=== PATIENT | female | born 1975 | race Caucasian/White ===

== ENCOUNTER → 2016-06-11 | Outpatient (CLI) | payer BC ==
--- NOTE | 2016-06-11 18:13 | US ---
EXAMINATION TYPE: US pelvic complete DATE OF EXAM: 06/11/2016 5:51 PM COMPARISON: NONE CLINICAL HISTORY: N92.1 menorrhagia. Patient had ablation done and after 1 year irregular bleeding s tarted again TECHNIQUE: TA Date of LMP: unknown EXAM MEASUREMENTS: Uterus: 8.0 x 5.4 x 4.3cm Endometrial Stripe: 0.5cm Right Ovary: 3.2 x 1.9 x 2.6cm Left Ovary: 2.5 x 2.0 x 2.3cm TECHNOLOGIST IMPRESSION: 1. Uterus: Retroverted wnl 2. Endometrium: wnl 3. Right Ovary: wnl 4. Left Ovary: wnl 5. Bilateral Adnexa: wnl 6. Posterior cul-de-sac: wnl IMPRESSION: No endometrial thickening seen. No adnexal mass or free fluid.
== END | disposition home or self-care (01) ==
LOC: RADUSMAIN 17:37
PROVIDERS: ATTEND Family Medicine
DX: N92.1 Excessive and frequent menstruation with irregular cycle (principal)
CPT/HCPCS: 76856

== ENCOUNTER → 2020-11-05 | Outpatient (CLI) | payer BC, OTHER ==
--- NOTE | 2020-11-06 09:56 | MM ---
Reason for exam: screening (asymptomatic). Last mammogram was performed 4 years and 11 months ago. History: Retro-pectoral implants in both breasts, 2018. Took hormonal contraceptives for 20 years. Physical Findings: A clinical breast exam by your physician is recommended on an annual basis and results should be correlated with mammographic findings. MG Screening Mammo Implant/CAD Bilateral CC, MLO, and ID view(s) were taken. Prior study comparison: November 26, 2015, bilateral MG screening mammo w CAD. The breast tissue is heterogeneously dense. This may lower the sensitivity of mammography. Stable benign calcifications in the left breast. Stable bilateral implants. No significant changes when compared with prior studies. ASSESSMENT: Benign, BI-RAD 2 RECOMMENDATION: Routine screening mammogram of both breasts in 1 year.
== END | disposition home or self-care (01) ==
LOC: RADMAMWWP 15:43
PROVIDERS: ATTEND Family Medicine
DX: Z12.31 Encounter for screening mammogram for malignant neoplasm of breast (principal)
CPT/HCPCS: 77067

== ENCOUNTER → 2021-05-21 | Outpatient (CLI) | payer OTHER ==
--- NOTE | 2021-05-21 09:51 | US ---
EXAMINATION TYPE: US pelvis complete transvag DATE OF EXAM: 05/21/2021 COMPARISON: 06/11/2016 CLINICAL HISTORY: 45-year-old female N92.6 Irregular Menstruation. Hx endometrial ablation. Spontane ous spotting. TECHNIQUE: Transabdominal sonographic images of the pelvis were acquired. Transvaginal sonographic i mages were medically necessary to better assess the following anatomy: Endometrium, ovaries Date of LMP: Unknown, FINDINGS: EXAM MEASUREMENTS: Uterus: 7.6 x 5.1 x 3.9 cm Endometrial Stripe: 0.2 cm Right Ovary: 4.7 x 4.8 x 3.2 cm Left Ovary: 3.3 x 2.7 x 1.8 cm 1. Uterus: Anteverted. Fundal left cystic lesion in myometrium = 0.6 x 0.8 x 0.4 cm 2. Endometrium: Limited visualization due to ablation 3. Right Ovary: Two complex cystic lesions: 1= 3.2 x 2.8 x 2.5 cm. 2= 2.9 x 2.6 x 2.9 cm. These matthew w internal reticular areas. 4. Left Ovary: Heterogeneous hypoechoic lesion = 1.5 x 1.6 x 1.7 cm. Possible hemorrhagic cyst. Ther e may be a focus of vascularity. 5. Bilateral Adnexa: Mild free fluid adjacent to right ovary and left ovary 6. Posterior cul-de-sac: Mild free fluid IMPRESSION: 1. An 8 mm cystic lesion along the left uterine fundus. Given the history of previous endometrial abl ation, focal hematometra would need to be considered. 2. 2 complex cystic lesions of the right ovary measuring 3.2 and 2.9 cm. Hemorrhagic cysts are favore d. Follow-up in 6-8 weeks to ensure involution. 3. Heterogeneous hypoechoic lesion of the left ovary measuring 1.7 cm. This may also represent hemorr hagic cyst. Given a possible focus of associated vascularity, this should also be reassessed on follo w-up to exclude the possibility of a solid mass. 4. Mild pelvic free fluid.
== END | disposition home or self-care (01) ==
LOC: RADUSWWP 08:25
PROVIDERS: ATTEND Family Medicine
DX: N85.8 Other specified noninflammatory disorders of uterus (principal); N83.201 Unspecified ovarian cyst, right side; N83.8 Other noninflammatory disorders of ovary, fallopian tube and broad ligament; Z98.891 History of uterine scar from previous surgery
CPT/HCPCS: 76830; 76856

== ENCOUNTER → 2022-01-19 | Outpatient (CLI) | payer OTHER ==
--- NOTE | 2022-01-20 08:07 | MM ---
Reason for Exam: Hx of breast augmentation, asymptomatic. Last mammogram was performed 1 year(s) and 3 month(s) ago. Patient History: Menarche at age 11. First Full-Term at age 26. Patient used Hormonal Contraceptives for 20 years. 2018, Bilateral Implants. Last menstrual period: 12/20/2021 Risk Values: Lina 5 year model risk: 1.0%. NCI Lifetime model risk: 10.3%. Prior Study Comparison: 11/26/2015 Bilateral Screening Mammogram, [facility]. 11/05/2020 Bilateral Screening Mammogram, [facility]. Tissue Density: The breast tissue is heterogeneously dense. This may lower the sensitivity of mammography. Findings: Analyzed By CAD. Bilateral breast implants. There is no suspicious group of microcalcifications or new suspicious mass in either breast. Overall Assessment: Negative, BI-RAD 1 Management: Screening Mammogram of both breasts in 1 year. A clinical breast exam by your physician is recommended on an annual basis and results should be correlated with mammographic findings. [facility] will attempt to contact patient to return for supplemental views and ultrasound if indicated. Electronically signed and approved by: Blake Borges DO
== END | disposition home or self-care (01) ==
LOC: RADMAMWWP 14:58
PROVIDERS: ATTEND Family Medicine
DX: Z12.31 Encounter for screening mammogram for malignant neoplasm of breast (principal)
CPT/HCPCS: 77067

== ENCOUNTER → 2023-01-19 | Outpatient (CLI) | payer OTHER ==
--- NOTE | 2023-01-19 09:06 | XR ---
EXAMINATION TYPE: XR ankle complete LT DATE OF EXAM: 01/19/2023 COMPARISON: NONE HISTORY: Pain TECHNIQUE: 3 views of the left ankle are submitted for evaluation. FINDINGS: There is no evidence for fracture or dislocation. Ankle mortise is intact. Soft tissues are within normal limits. IMPRESSION: No evidence for acute fracture.
== END | disposition home or self-care (01) ==
LOC: RADXRYALE 08:38
PROVIDERS: ATTEND Physician Assistant Medical
DX: M25.572 Pain in left ankle and joints of left foot (principal)

== ENCOUNTER 2023-05-10 09:35 | Day surgery (SDC) | payer OTHER ==
[2023-05-04 12:35] VITALS: BMI 22.3
[~2023-05-10 09:35] MED LIST: LACTATED RINGERS 1,000 ML IV SCH; LIDOCAINE 1% (10MG/ML) FOR IV START INTRADERMA PRN; ONDANSETRON 4 MG/2 ML VIAL IVP PRN
[2023-05-10] MEDS ORDERED: PROPOFOL 10 MG/ML 20 ML VIAL IV ONE (10:54)
--- NOTE | 2023-05-10 10:56 | P.GSHP ---
History of Present Illness H&P Date: 05/10/23 Chief Complaint: Colon cancer screening 47-year-old female here for colonoscopy. She has not had one previously. No bowel complaints. No family history of colon cancer. Past Medical History Past Medical History: No Reported History Additional Past Medical History / Comment(s): irregular & heavy menstrual cycles History of Any Multi-Drug Resistant Organisms: None Reported Past Surgical History: Breast Surgery, Tonsillectomy, Tubal Ligation, Uterine Ablation Additional Past Surgical History / Comment(s): BREAST AUGMENTATION X 2 Past Anesthesia/Blood Transfusion Reactions: Previous Problems w/ Anesthesia Additional Past Anesthesia/Blood Transfusion Reaction / Comment(s): B/P AND PULSE GO VERY LOW WITH ANESTHESIA Smoking Status: Former smoker - Past Family History Mother Family Medical History: No Reported History Medications and Allergies Home Medications Medication Instructions Recorded Confirmed Type Naproxen Sodium [Naproxen Sodium 500 mg PO DAILY 05/04/23 05/10/23 History ER] Rosuvastatin [Crestor] 20 mg PO DAILY 05/04/23 05/10/23 History buPROPion XL [Wellbutrin XL] 300 mg PO DAILY 05/04/23 05/10/23 History Allergies Allergy/AdvReac Type Severity Reaction Status Date / Time No Known Allergies Allergy Verified 05/10/23 10:31 Surgical - Exam Vital Signs Temp Pulse Resp BP Pulse Ox 98.9 F 60 18 126/76 98 05/10/23 10:42 05/10/23 10:42 05/10/23 10:42 05/10/23 10:42 05/10/23 10:42 Physical exam: General: Well-developed, well-nourished HEENT: Normocephalic, sclerae nonicteric Abdomen: Nontender, nondistended Extremities: No edema Neuro: Alert and oriented Assessment and Plan (1) Colon cancer screening Narrative/Plan: Will proceed with colonoscopy at this time. Current Visit: Yes Status: Acute Code(s): Z12.11 - ENCOUNTER FOR SCREENING FOR MALIGNANT NEOPLASM OF COLON SNOMED Code(s): 338021202
--- NOTE | 2023-05-10 11:11 | P.PCN ---
Date of Procedure: 05/10/23 Procedure(s) Performed: PREOPERATIVE DIAGNOSIS: Colon cancer screening POSTOPERATIVE DIAGNOSIS: Normal exam PROCEDURE: Colonoscopy ANESTHESIA: MAC SURGEON: Gibran Kelly M.D. SPECIMENS: None ENDOSCOPIC PROCEDURE: The patient was placed on the endoscopy table in the left decubitus position. The Olympus colonoscope was inserted into the anus and passed under direct visualization to the base of the cecum. The appendiceal orifice was visualized. From that point the scope was slowly withdrawn inspecti ng all surfaces carefully. There were no neoplastic inflammatory or polypoid lesions throughout the cecum, ascending, transverse, descending, sigmoid and rectum. There was no visible diverticulosis noted. Digital rectal examination was normal. The patient was taken to the recovery room in stable condition per anesthesia guidelines. RECOMMENDATIONS: Resume diet. Repeat colonoscopy 10 years.
[2023-05-10 11:14] VITALS: TEMP 98.9
[2023-05-10 11:39] VITALS: BP 124/81; PULSE 50; RESP 16
== END 2023-05-10 11:58 | disposition home or self-care (01) ==
LOC: ORWHC2ENDO 09:35
PROVIDERS: ATTEND Surgery
DX: Z12.11 Encounter for screening for malignant neoplasm of colon (principal); Z98.51 Tubal ligation status; Z87.891 Personal history of nicotine dependence; Z79.899 Other long term (current) drug therapy; Z98.890 Other specified postprocedural states
CPT/HCPCS: 45378; 81025; J2704

== ENCOUNTER → 2023-05-11 | Outpatient (CLI) | payer OTHER ==
--- NOTE | 2023-05-12 08:51 | MM ---
Reason for Exam: Hx of breast augmentation, asymptomatic. Last mammogram was performed 1 year(s) and 3 month(s) ago. Patient History: Menarche at age 11. First Full-Term at age 26. Patient used Hormonal Contraceptives for 20 years. 2018, Bilateral Implants. Risk Values: Lina 5 year model risk: 1.0%. NCI Lifetime model risk: 10.2%. Prior Study Comparison: 11/26/2015 Bilateral Screening Mammogram, [facility]. 11/05/2020 Bilateral Screening Mammogram, [facility]. 01/19/2022 Bilateral MG screening mammo implant/CAD, [facility]. Tissue Density: The breast tissue is heterogeneously dense. This may lower the sensitivity of mammography. Findings: Analyzed By CAD. Bilateral breast implants appear intact. There is no suspicious group of microcalcifications or new suspicious mass. Benign-appearing calcifications left breast. Overall Assessment: Benign, BI-RAD 2 Management: Screening Mammogram of both breasts in [address] [facility] will attempt to contact patient to return for supplemental views and ultrasound if indicated. Patient should continue monthly self-breast exams. A clinical breast exam by your physician is recommended on an annual basis. This exam should not preclude additional follow-up of suspicious palpable abnormalities. Note on Lina scores and lifetime risk: 1. A Lina score greater than 3% is considered moderate risk. If this is the case, consider specialist referral to assess eligibility for a risk reducing agent. 2. If overall lifetime risk for the development of breast cancer is 20% or higher, the patient may qualify for future screening with alternating mammogram and breast MRI. Electronically signed and approved by: Blake Borges DO
== END | disposition home or self-care (01) ==
LOC: RADMAMWWP 12:14
PROVIDERS: ATTEND Family Medicine
DX: Z12.31 Encounter for screening mammogram for malignant neoplasm of breast (principal)
CPT/HCPCS: 77067

== ENCOUNTER → 2024-10-24 | Outpatient (CLI) | payer OTHER ==
--- NOTE | 2024-10-24 15:59 | MM ---
Reason for Exam: Screening (asymptomatic). Last mammogram was performed 1 year(s) and 6 month(s) ago. Patient History: Menarche at age 11. First Full-Term at age 26. Patient used Hormonal Contraceptives for 20 years. 2018, Bilateral Implants. Risk Values: Lina 5 year model risk: 1.0%. NCI Lifetime model risk: 10.0%. Prior Study Comparison: 11/05/2020 Bilateral Screening Mammogram, [facility]. 01/19/2022 Bilateral MG screening mammo implant/CAD, [facility]. 05/11/2023 Bilateral MG screening mammo implant/CAD, [facility]. Tissue Density: There are scattered areas of fibroglandular density. Findings: Analyzed By CAD. Bilateral breast implants are redemonstrated. There is no suspicious group of microcalcifications or new suspicious mass in either breast. Overall Assessment: Benign, BI-RAD 2 Management: Screening Mammogram of both breasts in 1 year. . Patient should continue monthly self-breast exams. A clinical breast exam by your physician is recommended on an annual basis. This exam should not preclude additional follow-up of suspicious palpable abnormalities. Note on Lina scores and lifetime risk: 1. A Lina score greater than 3% is considered moderate risk. If this is the case, consider specialist referral to assess eligibility for a risk reducing agent. 2. If overall lifetime risk for the development of breast cancer is 20% or higher, the patient may qualify for future screening with alternating mammogram and breast MRI. [facility], , 10/24/2024 3:56 PM. Electronically signed and approved by: Joel Pino M.D.
== END | disposition home or self-care (01) ==
LOC: RADMAMWWP 15:17
PROVIDERS: ATTEND Family Medicine
DX: Z12.31 Encounter for screening mammogram for malignant neoplasm of breast (principal); R92.323 Mammographic fibroglandular density, bilateral breasts; Z92.0 Personal history of contraception; Z98.82 Breast implant status
CPT/HCPCS: 77067